=== PATIENT | female | born 1945 | race Hispanic/Latino ===

== ENCOUNTER → 2024-03-01 | Outpatient (CLI) | payer OTHER | END | disposition home or self-care (01) | LOC: RAH 11:03 | PROVIDERS: ATTEND Family Medicine | DX: N13.30 Unspecified hydronephrosis (principal); N39.0 Urinary tract infection, site not specified; R10.9 Unspecified abdominal pain; N93.0 Postcoital and contact bleeding | CPT/HCPCS: 76700; 76856 ==